=== PATIENT | male | born 1960 | race Caucasian/White ===

== ENCOUNTER → 2020-06-21 13:33 | Outpatient (CLI) | payer OTHER, MEDICAID, SELFPAY ==
--- NOTE | 2020-06-21 | DI.ECHO.S_ITS ---
[facility]---------+ [facility] +---------+ : : [address] : [address] : : [address] [place] : : : : [id number] : : : : Phone: [phone] +---------+ Echocardiogram Report + + :Name: MARIXA FRANKLIN Study Date: 06/21/2020 Height: 72 in : :[facility] ReadingLocation: Weight: 212 lb : : Gender: Male BSA: 2.2 m2 : :: 1960 Age: 59 yrs BP: 157/82 mmHg: :Reason For Study: SYSTOLIC CONGESTIVE HEART FAILURE : :Ordering Physician: LUIS, : :SONIA Performed By: Penny Avelar : :Referring: SONIA FULLER : + + Interpretation Summary 1) Normal left ventricular size with mildly reduced systolic function (EF 45- 50%). 2) Borderline enlarged right ventricle with normal function. 3) No significant valvular abnormalities. 4) The aortic root is mildly dilated at 4.1cm.The ascending aorta is mildly enlarged at 3.6cm. 5) No prior Echo available for comparison. Procedure: A two-dimensional transthoracic echocardiogram with color flow and Doppler was performed. The study quality was technically adequate. There is no prior echocardiogram noted for this patient. The patient was in sinus bradycardia with heart rates between 48-52 bpm during the exam. Left Ventricle: The left ventricle is normal in size and wall thickness. The ejection fraction is estimated to be 45-50%. There is mild global hypokinesis of the left ventricle. Right Ventricle: The right ventricle is borderline dilated. The right ventricular systolic function is normal. Atria: The left atrium is mildly dilated. The right atrium is normal in size. There is no Doppler evidence for an interatrial shunt. Mitral Valve: The mitral valve is normal in structure and function. There is mild mitral annular calcification. There is trace mitral regurgitation. Aortic Valve: The aortic valve is trileaflet. The aortic valve opens well. There is no aortic valve stenosis. No aortic regurgitation is present. Tricuspid Valve: The tricuspid valve is normal in structure and function. There is a trace or physiologic amount of tricuspid regurgitation. Pulmonary artery pressures cannot be estimated because of the lack of a measurable TR jet velocity but the IVC suggests a CVP of around 3 mmHg. Pulmonic Valve: The pulmonic valve leaflets are thin and pliable; valve motion is normal. There is no pulmonic valvular regurgitation. Great Vessels: The aortic root is mildly dilated. The ascending aorta is mildly enlarged. The IVC is of normal diameter and collapses greater than 50% with a sniff. This suggests a low right atrial pressure of 3 mm Hg. Pericardium/ Pleura There is no pericardial effusion. There is no pleural effusion. MMode/2D Measurements & Calculations LVIDd: 5.7 cm LVOT diam: 2.4 cm LVIDs: 3.8 cm Ao root diam: 4.1 cm FS: 33.4 % asc Aorta Diam: 3.6 cm EPSS: 1.5 cm Ao Arch Diam (Prox Trans): 2.8 cm IVSd: 0.96 cm LVPWd: 1.1 cm LV piedra. diameter/BSA (cm/m^2): 2.6 LV sys. diameter/BSA (cm/m^2): 1.7 LA A2 area: 26.9 cm2 RA long axis: 6.1 cm LA A4 area: 24.5 cm2 RA area: 22.7 cm2 LA length (vol): 6.1 cm RA vol: 71.7 ml LA vol: 91.7 ml RA : 32.8 ml/m2 LA vol index: 42.0 ml/m2 IVC diam: 1.3 cm RVD1 (basal): 3.8 cm TAPSE: 2.1 cm Doppler Measurements & Calculations Ao V2 max: 120.4 cm/sec LVOT Max Samuel: 79.0 cm/sec Ao V2 mean: 77.0 cm/sec LV V1 max P.5 mmHg Ao max P.8 mmHg LV V1 VTI: 16.7 cm Ao mean P.8 mmHg NEW(I,D): 3.1 cm2 Ao V2 VTI: 24.0 cm NEW(V,D): 3.0 cm2 sev ratio: 0.69 NEW indexed to BSA (cm^2/m^2): 1.4 MV E max samuel: 56.2 cm/sec PA V2 max: 76.8 cm/sec MV A max samuel: 64.5 cm/sec PA V2 mean: 51.1 cm/sec MV E/A: 0.87 PA mean P.2 mmHg Med Peak E' Samuel: 5.6 cm/sec PA pr(Accel): 17.3 mmHg E/E' med: 10.1 Lat Peak E' Samuel: 5.3 cm/sec E/E' lat: 10.6 E/e' average: 10.3 MV dec time: 0.22 sec SV(LVOT): 75.6 ml Reading Physician:08:12 AM
== END ==
PROVIDERS: Referring Provider Internal Medicine Cardiovascular Disease; Visit Provider Internal Medicine Cardiovascular Disease
DX: I77.810 Thoracic aortic ectasia (principal); I50.20 Unspecified systolic (congestive) heart failure
CPT/HCPCS: 93306

== ENCOUNTER → 2020-08-24 10:08 | Outpatient (CLI) | payer OTHER, MEDICAID, SELFPAY ==
[2020-08-24 11:24] LABS: COVID19 -Nasal RAPID Negative (Negative)
== END ==
PROVIDERS: Visit Provider Physician Assistant
DX: Z11.59 Encounter for screening for other viral diseases (principal)
CPT/HCPCS: 87635

== ENCOUNTER → 2020-08-26 10:55 | Outpatient (CLI) | payer OTHER, MEDICAID, SELFPAY ==
--- NOTE | 2020-08-26 | DI.NM.S_ITS ---
PROCEDURE: NM ZEESHAN PERF SPECT R&S PHARM Rest and pharmacological stress myocardial perfusion SPECT with gated imaging and ejection fraction RADIOPHARMACEUTICAL: 23.8 mCi Tc-99m tetrafosmin IV at rest and 27.4 mCi Tc-99m tetrafosmin IV at peak effect of pharmacological stress. [id number] was performed. INDICATIONS: Unspecified systolic (congestive) heart failure TECHNIQUE: Radiopharmaceutical was injected at peak stress test, and also at rest. SPECT images were obtained. SPECT myocardial perfusion images were displayed in short axis, horizontal long axis, and vertical long axis views. Gated images were reviewed using [employer] software. COMPARISON: None. CARDIAC STRESS: A pharmacologic stress test was performed under the supervision of an attending staff, using an infusion of lexiscan 0.4mg IV X1. Hemodynamic data: There is normal blood pressure and heart rate response to pharmacologic stress. Symptoms: The patient denied anginal chest pain. Aminophylline: none EKG: Resting ECG shows sinus rhythm with non-specific ST-T changes. No diagnostic changes of ischemia with lexiscan; no ectopy. FINDINGS: Raw data: There is good myocardial uptake of radiotracer. No significant motion artifacts. Left ventricle function: Gated images demonstrate normal left ventricular wall thickening. No segmental wall motion abnormalities. No transient ischemic dilation. Left ventricle resting end diastolic volume is 155 mL. Left ventricle stress ejection fraction is 54%; normal range is above 45%. Myocardial perfusion: There is a moderately intense defect in the inferior wall at rest that improves with stress and further improves with prone imaging, suggesting diaphragmatic attenuation but old prior non-transmural inferior infarct can't be excluded. No ischemia. IMPRESSION: Low risk, probably normal pharmaceutical nuclear stress test 1) There is a moderately intense defect in the inferior wall at rest that improves with stress and further improves with prone imaging, suggesting diaphragmatic attenuation but old prior non-transmural inferior infarct can't be excluded. No ischemia. 2) Enlarged left ventricle (resting EDV 155cc) with low normal systolic function (EF 54% post stress). No regional wall motion abnormalities. 3) No ECG evidence of ischemia. 4) No angina during the study. 5) No prior nuclear stress test available for comparison. Dictated by: Sarah Fuller MD on 08/29/2020 at 15:33 Approved by: Sarah Fuller MD on 08/29/2020 at 15:37
--- NOTE | 2020-08-26 11:54 | PM.TREADMILL ---
Cardiac Stress Test Report Referral & Results Date Patient Seen: 08/26/20 Time Patient Seen: 11:54 Requesting provider: Sarah Fuller Indication: Heart Failure Rest ECG: Paroxysmal atrial fibrillation Procedure Note: Patient was initially scheduled as a exercise stress test. Patient took metoprolol succ 200 mg this morning along with amiodarone 200 mg. Patient gait was unsteady on the treadmill. Test changed to Lexiscan. After Lexiscan injection, patient had minimal dypsnea, no chest pain. No significant ST changes after Lexiscan injection. Impression: Normal Lexiscan stress test Please note: Actual ECG tracings can be found in the PACS system.
== END ==
PROVIDERS: Referring Provider Internal Medicine Cardiovascular Disease; Visit Provider Internal Medicine Cardiovascular Disease
DX: I50.20 Unspecified systolic (congestive) heart failure (principal); I42.9 Cardiomyopathy, unspecified
CPT/HCPCS: 78452; 93016; 93017; 93018; A9502; J2785

== ENCOUNTER → 2021-04-24 13:07 | Outpatient (CLI) | payer MEDICARE, MEDICAID, SELFPAY ==
--- NOTE | 2021-04-24 13:08 | DI.ECHO.S_ITS ---
[facility]---------+ [facility] +---------+ : : [address] : [address] : [place] [address] : : : : [id number] : : : : Phone: [phone] : : [phone] +---------+ Echocardiogram Report + + :Name: MARIXA FRANKLIN Study Date: 04/24/2021 Height: 71.5 in: :[facility] ReadingLocation: Weight: 207 lb : : Gender: Male BSA: 2.2 m2 : :: 1960 Age: 60 yrs BP: 150/90 mmHg: :Reason For Study: Systolic (congestive) heart failure : :Ordering Physician: : :GLADIS Performed By: Edgar Rey : :Referring: SONIA FULLER : + + Interpretation Summary 1) Normal left ventricular size with mildly reduced systolic function (EF 45- 50%). 2) Borderline enlarged right ventricle with normal function. 3) No significant valvular abnormalities. 4) The aortic root is mildly dilated at 4.1cm. 5) Hypertension present during the study (BP 150/90mmHg). 6) Compared to the Echo done 06/21/2020, no significant change. Procedure: A two-dimensional transthoracic echocardiogram with color flow and Doppler was performed. Comparison is made with the echocardiogram of 06/21/2020. Overall fair image quality. The patient was in normal sinus rhythm during the exam. Left Ventricle: The left ventricle is normal in size and wall thickness. The ejection fraction is estimated to be 45-50%. There is a borderline dyssynchronous contraction pattern, consistent with a conduction abnormality. There is mild global hypokinesis of the left ventricle. Diastolic parameters suggest a relaxation abnormality of the left ventricle, consistent with probable normal filling pressures. Right Ventricle: Borderline right ventricular enlargement. The right ventricular systolic function is normal. Atria: Both atria are normal in size. There is no Doppler evidence for an interatrial shunt. Mitral Valve: The mitral valve is normal. There is no mitral regurgitation noted. Aortic Valve: The aortic valve is trileaflet. The aortic valve opens well. The aortic valve is slightly calcified. There is no aortic valve stenosis. No aortic regurgitation is present. Tricuspid Valve: The tricuspid valve is normal. There is trace tricuspid regurgitation. Pulmonary artery pressures cannot be estimated because of the lack of a measurable TR jet velocity but the IVC suggests a CVP of around 3 mmHg. Pulmonic Valve: The pulmonic valve is normal in structure and function. Great Vessels: Aortic root measures 4.1 cm which is unchanged from prior. Ascending aorta measures about 3.7 cm, previously measuring 3.6 cm. The aortic arch is normal in size. The IVC is of normal diameter and collapses greater than 50% with a sniff. This suggests a low right atrial pressure of 3 mm Hg. Pericardium/ Pleura There is no pericardial effusion. There is no pleural effusion. MMode/2D Measurements & Calculations LVIDd: 5.7 cm LVOT diam: 2.2 cm LVIDs: 3.5 cm Ao root diam: 4.1 cm FS: 38.6 % Ao Arch Diam (Prox Trans): 2.9 cm IVSd: 1.2 cm LVPWd: 1.0 cm LV piedra. diameter/BSA (cm/m^2): 2.6 LV sys. diameter/BSA (cm/m^2): 1.6 LA A2 area: 21.5 cm2 RA long axis: 4.9 cm LA A4 area: 20.6 cm2 LA length (vol): 5.5 cm LA vol: 68.9 ml LA vol index: 31.9 ml/m2 LVLs ap4: 6.4 cm LVLd ap2: 7.5 cm LVLs ap2: 6.2 cm TAPSE_phl: 2.9 cm Doppler Measurements & Calculations Ao V2 max: 99.0 cm/sec LVOT Max Samuel: 82.5 cm/sec Ao V2 mean: 72.6 cm/sec LV V1 max P.7 mmHg Ao max P.0 mmHg LV V1 VTI: 16.8 cm Ao mean P.0 mmHg NEW(I,D): 3.1 cm2 Ao V2 VTI: 20.4 cm NEW(V,D): 3.2 cm2 sev ratio: 0.82 NEW indexed to BSA (cm^2/m^2): 1.5 MV E max samuel: 52.5 cm/sec PA V2 max: 130.0 cm/sec MV A max samuel: 67.3 cm/sec PA V2 mean: 93.7 cm/sec MV E/A: 0.78 PA mean P.0 mmHg Med Peak E' Samuel: 7.2 cm/sec PA pr(Accel): 52.9 mmHg E/E' med: 7.3 Lat Peak E' Samuel: 8.3 cm/sec E/E' lat: 6.3 E/e' average: 6.8 MV dec time: 0.35 sec SV(LVOT): 63.9 ml AV VR_phl: 0.83 NEW(VTI)/BSA_phl: 1.4 MV P1/2t-pr_phl: 101.0 msec Reading Physician:03:49 PM
== END ==
PROVIDERS: Referring Provider Internal Medicine Cardiovascular Disease; Visit Provider Internal Medicine Cardiovascular Disease
DX: I77.810 Thoracic aortic ectasia (principal); I50.20 Unspecified systolic (congestive) heart failure
CPT/HCPCS: 93306

== ENCOUNTER → 2022-04-18 13:38 | Outpatient (CLI) | payer MEDICARE, MEDICAID, SELFPAY ==
--- NOTE | 2022-04-18 | DI.ECHO.S_ITS ---
[facility] +---------+ Hospital +---------+ : : [address] : [address] : : : : [id number] : : : : Phone: [phone] : : [phone] +---------+ Echocardiogram Report + + :Name: MARIXA FRANKLIN Study Date: 04/18/2022 Height: 72 in : :[facility] ReadingLocation: Weight: 204 lb : : Gender: Male BSA: 2.1 m2 : :: 1960 Age: 61 yrs BP: 145/90 mmHg: :Reason For Study: ASCENDING AORTA ENLARGEMENT : :Ordering Physician: LUIS, : :SONIA Performed By: Penny Avelar : :Referring: SONIA FULLER : + + Interpretation Summary 1) Normal left ventricular size with mildly reduced systolic function (EF 45- 50%). 2) The right ventricle is normal in size and function.. 3) No significant valvular abnormalities. 4) The aortic root is borderline dilated at 3.7cm. 5) Hypertension present during the study (BP 145/90mmHg). 6) Compared to the Echo done 04/24/2021, aortic root is less enlarged but this could be different acoustic windows on this study. Procedure: A two-dimensional transthoracic echocardiogram with color flow and Doppler was performed. The study quality was technically adequate. Comparison is made with the echocardiogram of 04/24/2021. The patient was in sinus rhythm with heart rates between 76-83 bpm during the exam. Left Ventricle: The left ventricle is normal in size. There is mild concentric left ventricular hypertrophy. The ejection fraction is estimated to be 45-50%. There is mild global hypokinesis of the left ventricle. Diastolic parameters suggest a relaxation abnormality of the left ventricle, consistent with probable normal filling pressures. Right Ventricle: The right ventricle is normal in size and function. Atria: The left atrial size is normal. Right atrial size is normal. There is no Doppler evidence for an interatrial shunt. Mitral Valve: The mitral valve is normal in structure and function. There is mild mitral annular calcification. There is no mitral regurgitation noted. Aortic Valve: The aortic valve is trileaflet. The aortic valve opens well. There is no aortic valve stenosis. No aortic regurgitation is present. Tricuspid Valve: The tricuspid valve is normal in structure and function. There is trace tricuspid regurgitation. Pulmonary artery pressures cannot be estimated because of the lack of a measurable TR jet velocity. Pulmonic Valve: The pulmonic valve is not well visualized. There is no pulmonic valvular regurgitation. Great Vessels: The aortic root is borderline dilated. The ascending aorta is at the upper limits of normal in size. The IVC is of normal diameter and collapses greater than 50% with a sniff. This suggests a low right atrial pressure of 3 mm Hg. Pericardium/ Pleura There is no pericardial effusion. There is no pleural effusion. MMode/2D Measurements & Calculations LVIDd: 5.0 cm LVOT diam: 2.6 cm LVIDs: 3.7 cm Ao root diam: 3.7 cm FS: 25.2 % asc Aorta Diam: 3.6 cm IVSd: 1.1 cm Ao Arch Diam (Prox Trans): 2.7 cm LVPWd: 1.0 cm LV piedra. diameter/BSA (cm/m^2): 2.3 LV sys. diameter/BSA (cm/m^2): 1.7 LA A2 area: 23.5 cm2 RA long axis: 5.9 cm LA A4 area: 18.5 cm2 RA area: 17.3 cm2 LA length (vol): 5.2 cm RA vol: 43.3 ml LA vol: 71.2 ml RA : 20.1 ml/m2 LA vol index: 33.2 ml/m2 IVC diam: 1.4 cm RVD1 (basal): 3.9 cm RVD2 (mid): 2.9 cm TAPSE: 2.1 cm Doppler Measurements & Calculations Ao V2 max: 112.6 cm/sec LVOT Max Samuel: 98.8 cm/sec Ao V2 mean: 87.2 cm/sec LV V1 max P.9 mmHg Ao max P.1 mmHg LV V1 VTI: 17.5 cm Ao mean P.2 mmHg NEW(I,D): 4.1 cm2 Ao V2 VTI: 22.2 cm NEW(V,D): 4.6 cm2 sev ratio: 0.79 NEW indexed to BSA (cm^2/m^2): 1.9 MV E max samuel: 53.0 cm/sec PA V2 max: 118.4 cm/sec MV A max samuel: 65.4 cm/sec PA V2 mean: 81.8 cm/sec MV E/A: 0.81 PA mean P.0 mmHg Med Peak E' Samuel: 10.6 cm/sec PA pr(Accel): 31.0 mmHg E/E' med: 5.0 Lat Peak E' Samuel: 10.3 cm/sec E/E' lat: 5.1 E/e' average: 5.1 MV dec time: 0.27 sec SV(OT): 92.3 ml Reading Physician:04:28 PM
== END ==
PROVIDERS: PCP Registered Nurse; Referring Provider Internal Medicine Cardiovascular Disease; Visit Provider Internal Medicine Cardiovascular Disease
DX: I34.81 Nonrheumatic mitral (valve) annulus calcification (principal); I77.89 Other specified disorders of arteries and arterioles
CPT/HCPCS: 93306

== ENCOUNTER 2022-04-26 12:34 | Outpatient (CLI) | payer MEDICARE, MEDICAID, SELFPAY ==
[2022-04-26] VITALS (7 sets, daily range): BP systolic 123–149; BP diastolic 67–88; PULSE 78–83; RESP 19–22; TEMP 36.8; O2SAT 96–100
--- NOTE | 2022-04-26 13:13 | DI.RAD.S_ITS ---
PROCEDURE: PAIN L/S FACET INJ/BLK 1ST NANDINI COMPARISON: None. INDICATIONS: SPINAL STENOSIS FINDINGS: Spot fluoroscopic image demonstrates L3, L4, and L5 branch block. IMPRESSION: Fluoroscopically guided branch block. Dictated by: Maryam Kim M.D. on 04/26/2022 at 16:43 Approved by: Maryam Kim M.D. on 04/26/2022 at 16:43
[2022-04-26] MEDS: IOPAMIDOL 15 ML VIAL 3 ML INJ (13:21)
[2022-04-26] MEDS: BUPIVACAINE 0.5% (PF) 10 ML VIAL 5 ML SUBCUT (13:22)
--- NOTE | 2022-04-26 13:48 | P.PCN_ITS ---
Date/Time/Diagnoses Date of procedure: 04/26/22 Time of procedure: 13:37 Procedure Notes Physician: Mark Thakkar Total Fluoroscopy time (seconds): 14 Total sedation minutes: 0 Procedure in detail & Post-procedure care: Bilateral L3,4,5 Lumbar Medial Branch Blocks Indications: Fito is referred by Dr. Beltran for treatment of lumbar spondylosis with low back pain. Preoperative diagnosis: Bilateral lumbar spondylosis Postoperative diagnosis: Same Pre-procedure History: Patient demonstrates today moderate to severe non- radicular back pain without neurologic deficit aggravated by hyperextension Yes Back pain greater than leg pain? Yes Patient today has tenderness over the suspected joint(s) Yes History of post-traumatic injury? No Hypertrophic arthropathy Yes Back pain associated with suspected motion segment instability, hypermobility or pseudoarthrosis No Pre-testing pain score (VAS): 7/10 Focused Examination: Ax3 Mood and affect are normal Vital Signs: VSS ASA: 2 Consent: Following review of allergies and potential side effects/complications, including, but not necessarily limited to, infection, allergic reaction, local tissue breakdown, stroke, temporary or permanent nerve injury, paralysis, and possible , the patient indicated that they understood and agreed to proceed.? An informed consent document was signed by the patient, witnessed by a nurse and placed in the patient's chart.? Additionally, other treatment options including medications and physical therapy were reviewed with the patient. All questions were answered. Site was then marked. Anesthesia: Local Position: Prone Monitoring: NIBP, Pulse oximetry, 3 lead EKG Needle used: 25G 3.5 inch spinal needle Contrast: Isovue 300M Injectate: 0.5% Bupivacaine 0.5 mL per injection site Procedure: The patient was brought into the procedure room and positioned into the prone position. Skin was prepped with a Chloraprep solution, allowed to air dry, and then draped in sterile fashion.? The bilateral L3,4,5 facet joints were visually identified with fluoroscopy. Lidocaine 1% was used to anesthetize the skin over each target destination with a 25ga needle. A 25 ga, 3.5 inch spinal needle was advanced to the location of the medial branch at the junction of the superior articular process and the transverse process using intermittent fluoroscopy in the AP view. Isovue 300M contrast 0.2ml was injected at each level outlining the medial borders for each level and the base of the SAP of the sacrum in the AP and lateral views. There was no evidence of vascular or intrathecal uptake. The above injectate was slowly injected at each target destination. At the end of the procedure the needles were withdrawn and Band- Aids were applied for a dressing. Post Procedure: Patient was taken to the recovery and monitored. The patient was provided a Pain Log to continue to record the patient's response to the target- specific procedure prior to the patient's follow-up visit with the referring physician. Patient was stable upon discharge. Detailed post procedure instructions were provided. Patient was asked to call in the event of worsening pain, fever, weakness, numbness or bladder or bowel incontinence. Postoperatively, today patient demonstrates the following changes with hyperextension and with tenderness over the suspected joint(s). Provacative testing using the Aj's facet loading test Right side Left side Directly before the block ?VAS (0-10) = 7/10 VAS (0-10) = 7/10 5 minutes after the block VAS (0-10) = 2/10 VAS (0-10) = 2/10 Percentage relief obtained with this diagnostic block D 71% 71% Any improved physical functioning directly after the blocks? walking, ROM Based on the medial branches blocked today, if the patient meets insurance criteria for radiofrequency, the treatment should result in the denervation of the L4-5 and L5-S1 facet joint nerves. We would expect to denervate a total of 4 facets during the radiofrequency ablation.
== END 2022-04-26 13:46 | disposition home or self-care (01) ==
LOC: RAD 12:36
PROVIDERS: PCP Registered Nurse; Referring Provider Anesthesiology; Visit Provider Anesthesiology
DX: M47.816 Spondylosis without myelopathy or radiculopathy, lumbar region (principal)
CPT/HCPCS: 64493; 64494

== ENCOUNTER 2022-06-21 13:36 | Outpatient (CLI) | payer MEDICARE, MEDICAID, SELFPAY ==
--- NOTE | 2022-06-21 13:39 | DI.RAD.S_ITS ---
PROCEDURE: PAIN L/S FACET INJ/BLK 1ST NANDINI COMPARISON: [facility], , PAIN L/S FACET INJ/BLK 1ST NANDINI, 04/26/2022, 14:21. INDICATIONS: SPONDYLOSIS FINDINGS: Needle placement at the lower lumbar and lumbosacral levels. IMPRESSION: Needle placement as above. Dictated by: Brooke Yung M.D. on 06/21/2022 at 16:47 Approved by: Brooke Yung M.D. on 06/21/2022 at 16:48
[2022-06-21 14:00] VITALS: BP 137/88; PULSE 70; RESP 18; TEMP 36.6; O2SAT 99
[2022-06-21 14:53] VITALS: BP 129/60; PULSE 71; RESP 17; O2SAT 98
[2022-06-21 14:58] VITALS: BP 124/60; PULSE 76; RESP 18; O2SAT 97
[2022-06-21] MEDS: IOPAMIDOL 15 ML VIAL 3 ML INJ (14:58)
[2022-06-21] MEDS: LIDOCAINE 2% INJ MDV 20ML 20 ML INJ (15:01)
[2022-06-21 15:03] VITALS: BP 127/61; PULSE 76; RESP 18; O2SAT 97
[2022-06-21 15:08] VITALS: BP 123/61; PULSE 77; RESP 18; O2SAT 97
[2022-06-21 15:15] VITALS: BP 137/74; PULSE 69; RESP 16; O2SAT 99
--- NOTE | 2022-06-21 17:20 | P.PCN_ITS ---
Date/Time/Diagnoses Date of procedure: 06/21/22 Time of procedure: 14:30 Procedure Notes Physician: Mark Thakkar Total Fluoroscopy time (seconds): 15 Total sedation minutes: 0 Procedure in detail & Post-procedure care: Bilateral L3, 4, 5 Lumbar Medial Branch Blocks Indications: Fito is referred by Dr. Beltran for treatment of lumbar spondylosis with low back pain. Preoperative diagnosis: Bilateral lumbar spondylosis Postoperative diagnosis: Same Pre-procedure History: Patient demonstrates today moderate to severe non- radicular back pain without neurologic deficit aggravated by hyperextension yes Back pain greater than leg pain? yes Patient today has tenderness over the suspected joint(s) yes History of post-traumatic injury? yes Hypertrophic arthropathy yes Back pain associated with suspected motion segment instability, hypermobility or pseudoarthrosis no Pre-testing pain score (VAS): 8/10 Focused Examination: Ax3 Mood and affect are normal Vital Signs: VSS ASA: 2 Consent: Following review of allergies and potential side effects/complications, including, but not necessarily limited to, infection, allergic reaction, local tissue breakdown, stroke, temporary or permanent nerve injury, paralysis, and possible , the patient indicated that they understood and agreed to proceed.? An informed consent document was signed by the patient, witnessed by a nurse and placed in the patient's chart.? Additionally, other treatment options including medications and physical therapy were reviewed with the patient. All questions were answered. Site was then marked. Anesthesia: Local Position: Prone Monitoring: NIBP, Pulse oximetry, 3 lead EKG Needle used: 22G 3.5 inch spinal needle Contrast: Isovue 300M Injectate: 2% lidocaine Procedure: The patient was brought into the procedure room and positioned into the prone position. Skin was prepped with a Chloraprep solution, allowed to air dry, and then draped in sterile fashion.? The right L3, 4, 5 facet joints were visually identified with fluoroscopy. Lidocaine 1% was used to anesthetize the skin over each target destination with a 25ga needle. A 22ga, 3.5 inch spinal needle was advanced to the location of the medial branch at the junction of the superior articular process and the transverse process using intermittent fluoroscopy in the AP view. Isovue 300M contrast 0.2ml was injected at each level outlining the medial borders for each level and the base of the SAP of the sacrum in the AP and lateral views. There was no evidence of vascular or intrathecal uptake. The above injectate was slowly injected at each target nicole tination. The above procedure was then repeated for the left L3, 4, 5. Facet joints were visually identified with fluoroscopy. Lidocaine 1% was used to anesthetize the skin over each target destination with a 25ga needle. A 22ga, 3.5 inch spinal needle was advanced to the location of the medial branch at the junction of the superior articular process and the transverse process using intermittent fluoroscopy in the AP view. Isovue 300M contrast 0.2ml was injected at each level outlining the medial borders for each level and the base of the SAP of the sacrum in the AP and lateral views. There was no evidence of vascular or intrathecal uptake. The above injectate was slowly injected at each target destination. At the end of the procedure the needles were withdrawn and Band- Aids were applied for a dressing. Post Procedure: Patient was taken to the recovery and monitored. The patient was provided a Pain Log to continue to record the patient's response to the target- specific procedure prior to the patient's follow-up visit with the referring physician. Patient was stable upon discharge. Detailed post procedure instructions were provided. Patient was asked to call in the event of worsening pain, fever, weakness, numbness or bladder or bowel incontinence. Postoperatively, today patient demonstrates the following changes with hyperextension and with tenderness over the suspected joint(s). Provacative testing using the Aj's facet loading test Right side Left side Directly before the block ?VAS (0-10) = 8/10 VAS (0-10) = 8/10 5 minutes after the block VAS (0-10) = 4/10 VAS (0-10) = 4/10 Percentage relief obtained with this diagnostic block 50 % 50 % Any improved physical functioning directly after the blocks? Improved mobility Based on the medial branches blocked today, if the patient meets insurance criteria for radiofrequency, the treatment should result in the denervation of the bilateral L4-5 and L5-S1 facet joint nerves. We would expect to denervate a total of 4 facets during the radiofrequency ablation.
== END 2022-06-21 15:17 | disposition home or self-care (01) ==
PROVIDERS: PCP Registered Nurse; Referring Provider Anesthesiology; Visit Provider Anesthesiology
DX: M47.816 Spondylosis without myelopathy or radiculopathy, lumbar region (principal)
CPT/HCPCS: 64493; 64494

== ENCOUNTER 2022-07-12 12:59 | Outpatient (CLI) | payer MEDICARE, MEDICAID, SELFPAY ==
[2022-07-12] VITALS (10 sets, daily range): BP systolic 117–154; BP diastolic 65–80; PULSE 64–74; RESP 18–22; TEMP 36.8; O2SAT 95–99
--- NOTE | 2022-07-12 13:03 | DI.RAD.S_ITS ---
PROCEDURE: PAIN L/S MED/LAT N RFA BILAT INDICATIONS: SPONDYLOSIS COMPARISON: None. FINDINGS: Fluoroscopic spot filming was performed to verify placement of spinal needles at the L3, L4 and L5 level(s), as labeled on the films. Appropriate location(s) of the needle tip(s) was confirmed by injection of iodinated contrast. IMPRESSION: Fluoro guidance was provided intraoperatively for bilateral L3, L4 and L5 medial branch rhizotomy to be performed by the ordering physician. Dictated by: Leonardo Michel M.D. on 07/12/2022 at 16:16 Approved by: Leonardo Michel M.D. on 07/12/2022 at 16:16
[2022-07-12] MEDS: MIDAZOLAM 2 MG/2 ML VIAL IV (13:50)
[2022-07-12] MEDS: DEXAMETHASONE 10 MG/ML VIAL INJ (13:56)
[2022-07-12] MEDS: LIDOCAINE 2% INJ SDV 5ML 5 ML TOP (13:56)
[2022-07-12] MEDS: BUPIVACAINE 0.5% (PF) 30 ML VIAL 5 ML INJ (13:59)
--- NOTE | 2022-07-12 17:15 | P.PCN_ITS ---
Date/Time/Diagnoses Date of procedure: 07/12/22 Time of procedure: 13:30 Procedure Notes Physician: Mark Thakkar Total Fluoroscopy time (seconds): 25 Total sedation minutes: 33 Procedure in detail & Post-procedure care: Bilateral L3, 4, 5 Lumbar Medial Branch Radio Frequency Ablation Indications: Fito presents for treatment of lumbar spondylosis with low back pain. Preoperative diagnosis: Bilateral L3, 4, 5 lumbar spondylosis Postoperative diagnosis: Same Pre-procedure History: Patient demonstrates today moderate to severe non-radicular low back pain without neurologic deficit aggravated by hyperextension yes Back pain greater than leg pain? yes Patient today has tenderness over the suspected joint(s) yes History of post-traumatic injury? no Hypertrophic arthropathy yes Back pain associated with suspected motion segment instability, hypermobility or pseudoarthrosis no Focused Examination: Ax3 Mood and affect are normal Vital Signs: VSS ASA: 2 Consent: Following review of allergies and potential side effects/complications, including, but not necessarily limited to, infection, allergic reaction, local tissue breakdown, stroke, temporary or permanent nerve injury, paralysis, and possible , the patient indicated that they understood and agreed to proceed.? An informed consent document was signed by the patient, witnessed by a nurse and placed in the patient's chart.? Additionally, other treatment options including medications and physical therapy were reviewed with the patient. All questions were answered. Site was then marked. Position: Prone Monitoring: NIBP, Pulse oximetry, 3 lead EKG Needle used: 18 guage, 100 mm, 10 mm active tip Anesthesia: Local with IV sedation. After review of previous anesthetic history and IV conscious sedation, the patient was deemed safe to proceed with today's procedure with IV conscious sedation. IV sedation was accomplished with midazolam 2 mg administered by the RN after order by Dr. Thakkar. Sedation was titrated to patient comfort during the course of the procedure. Patient remained responsive to all verbal commands. Procedure: The patient was brought into the procedure room and positioned into the prone position. Skin was prepped with a Chloraprep solution, allowed to air dry, and then draped in sterile fashion.? The right L4-5 and L5-S1 facet joints were visually identified with fluoroscopy. Lidocaine 1% was used to anesthetize the skin over each target destination with a 25ga needle. An 18 ga, 100 mm RFA needle with a 10 mm active tip was advanced to the location of the medial branch at the junction of the superior articular process and the transverse process at right L3, 4, 5 using intermittent fluoroscopy in the oblique view with caudal tilt. AP and lateral radiographs were taken to confirm proper needle placement. No paresthesias were noted. The stylet was removed and the radiofrequency probe was inserted through the cannula. Each level was individually tested. The impedance was between 300 and 800 ohms at all levels.? Motor stimulation up to 2V elicited multifidus twitching in the lumbar spine. There was no motor stimulation in the lower extremities. After negative aspiration, 1ml of 2% lidocaine was injected at each of the levels and radiofrequency denervation carried out using 80 degrees Celsius for 90 seconds. The needles were then rotated 90 degrees and a second ablation was performed at 80 degrees Celsius for 90 seconds. After ablation, a mixture of 10 mg dexamethasone with 0.25% bupivacaine 5 mL was injected in equal amounts among the sites (1 mL per site). Next, the left L4-5 and L5-S1 facet joints were visually identified with fluoroscopy. Lidocaine 1% was used to anesthetize the skin over each target destination with a 25ga needle. An 18 ga, 100 mm RFA needle with a 10 mm active tip was advanced to the location of the medial branch at the junction of the sup erior articular process and the transverse process at left L3, 4, 5 using intermittent fluoroscopy in the oblique view with caudal tilt. AP and lateral radiographs were taken to confirm proper needle placement. No paresthesias were noted. The stylet was removed and the radiofrequency probe was inserted through the cannula. Each level was individually tested. The impedance was between 300 and 800 ohms at all levels.? Motor stimulation up to 2V elicited multifidus twitching in the lumbar spine. There was no motor stimulation in the lower extremities. After negative aspiration, 1ml of 2% lidocaine was injected at each of the levels and radiofrequency denervation carried out using 80 degrees Celsius for 90 seconds. The needles were then rotated 90 degrees and a second ablation was performed at 80 degrees Celsius for 90 seconds. After ablation, a mixture of 10 mg dexamethasone with 0.25% bupivacaine 5 mL was injected in equal amounts among the sites (1 mL per site). At the end of the procedure the needles were withdrawn and Band-Aids were applied for a dressing. This procedure is expected to denervate the bilateral L4-5 and L5-S1 facet joints. Post Procedure: Patient was taken to the recovery and monitored. The patient was provided a Pain Log to continue to record the patient's response to the target- specific procedure prior to the patient's follow-up visit with the referring physician. Patient was stable upon discharge. Detailed post procedure instructions were provided. Patient was asked to call in the event of worsening pain, fever, weakness, numbness or bladder or bowel incontinence. Complications: None
== END 2022-07-12 14:38 | disposition home or self-care (01) ==
PROVIDERS: PCP Registered Nurse; Referring Provider Anesthesiology; Visit Provider Anesthesiology
DX: M47.816 Spondylosis without myelopathy or radiculopathy, lumbar region (principal)
CPT/HCPCS: 64635; 64636; 99152; 99153; J1100; J2250

== ENCOUNTER → 2023-05-20 13:38 | Outpatient (CLI) | payer MEDICARE, MEDICAID, SELFPAY ==
--- NOTE | 2023-05-20 13:39 | DI.ECHO.S_ITS ---
[facility]---------+ [facility] +---------+ : : [address] [place] : : : : [id number] : : : : Phone: [phone]---------+ Echocardiogram Report + + :Name: MARIXA FRANKLIN Study Date: 05/20/2023 Height: 72 in : :[facility] ReadingLocation: Weight: 185 lb : : Gender: Male BSA: 2.1 m2 : :: 1960 Age: 62 yrs BP: 142/88 mmHg: :Reason For Study: ASCENDING AORTA ENLARGEMENT : :Ordering Physician: LUIS, : :SONIA Performed By: Gopi Dickens : :Referring: SONIA FULLER : + + Interpretation Summary 1) Normal left ventricular size with mildly to moderately reduced systolic function (EF 40-45%). 2) The right ventricle is normal in size and function.. 3) No significant valvular abnormalities. 4) The aortic root is borderline dilated at 4.0cm. 5) Hypertension present during the study (BP 142/88mmHg). 6) Compared to the Echo done 04/18/2022, LVEF has decreased slightly from 45-50% to 40-45% on this study. Procedure: A two-dimensional transthoracic echocardiogram with color flow and Doppler was performed. The study quality was technically adequate. Comparison is made with the echocardiogram of 04/18/22. The patient was in normal sinus rhythm during the exam. The heart rate ranged between 62-70 bpm during the study. Left Ventricle: The left ventricle is normal in size and wall thickness. The ejection fraction is estimated to be 40-45%. There is mild to moderate global hypokinesis of the left ventricle. Diastolic parameters suggest a relaxation abnormality of the left ventricle, consistent with probable normal filling pressures. Right Ventricle: The right ventricle is normal size. The right ventricular systolic function is normal. Atria: The left atrium is moderately dilated. The right atrium is normal in size. Mitral Valve: The mitral valve is normal in structure and function. There is no mitral valve stenosis. There is trace mitral regurgitation. Aortic Valve: The aortic valve is trileaflet. There is no aortic valve stenosis. No aortic regurgitation is present. Tricuspid Valve: The tricuspid valve is normal in structure and function. There is no tricuspid stenosis. No tricuspid regurgitation. Pulmonic Valve: The pulmonic valve is not well visualized. There is no pulmonic valvular stenosis. There is no pulmonic valvular regurgitation. Great Vessels: The aortic root is mildly dilated. The ascending aorta is at the upper limits of normal in size. The inferior vena cava appeared normal. Pericardium/ Pleura There is no pericardial effusion. There is no pleural effusion. MMode/2D Measurements & Calculations LVIDd: 5.0 cm LVOT diam: 2.3 cm LVIDs: 3.8 cm Ao root diam: 4.0 cm FS: 23.5 % asc Aorta Diam: 3.6 cm IVSd: 1.2 cm Ao Arch Diam (Prox Trans): 2.8 cm LVPWd: 1.1 cm LV piedra. diameter/BSA (cm/m^2): 2.4 LV sys. diameter/BSA (cm/m^2): 1.8 LA A2 area: 20.9 cm2 RA long axis: 4.5 cm LA A4 area: 23.5 cm2 RA area: 17.3 cm2 LA length (vol): 6.0 cm RA vol: 56.4 ml LA vol: 69.9 ml RA : 27.4 ml/m2 LA vol index: 33.9 ml/m2 IVC diam: 1.3 cm RVD1 (basal): 4.3 cm RVD2 (mid): 3.2 cm TAPSE: 2.5 cm Doppler Measurements & Calculations Ao V2 max: 89.6 cm/sec LVOT Max Samuel: 83.8 cm/sec Ao V2 mean: 68.7 cm/sec LV V1 max P.8 mmHg Ao max P.2 mmHg LV V1 VTI: 20.5 cm Ao mean P.0 mmHg NEW(I,D): 3.9 cm2 Ao V2 VTI: 21.4 cm NEW(V,D): 3.8 cm2 sev ratio: 0.96 NEW indexed to BSA (cm^2/m^2): 1.9 MV E max samuel: 53.9 cm/sec PA V2 max: 118.9 cm/sec MV A max samuel: 71.1 cm/sec PA V2 mean: 79.6 cm/sec MV E/A: 0.76 PA mean P.9 mmHg Med Peak E' Samuel: 6.3 cm/sec PA pr(Accel): 20.8 mmHg E/E' med: 8.6 Lat Peak E' Samuel: 8.3 cm/sec E/E' lat: 6.5 E/e' average: 7.5 MV dec time: 0.28 sec SV(LVOT): 84.4 ml Reading Physician:05:18 PM
== END ==
PROVIDERS: PCP Registered Nurse; Referring Provider Internal Medicine Cardiovascular Disease; Visit Provider Internal Medicine Cardiovascular Disease
DX: I77.810 Thoracic aortic ectasia (principal); I77.89 Other specified disorders of arteries and arterioles
CPT/HCPCS: 93306

== ENCOUNTER → 2024-07-02 | Outpatient (CLI) | payer MEDICARE, SELFPAY ==
--- NOTE | 2024-07-02 12:56 | DI.ECHO.S_ITS ---
[facility] +---------+ [facility] : : [address] : [place] : : [id number] : : Phone: [phone] Echocardiogram Report + + :Name: MARIXA FRANKLIN Study Date: 07/02/2024 Height: 72 in : :Hospital ReadingLocation: Weight: 200 lb : : Gender: Male BSA: 2.1 m2 : :: 1960 Age: 63 yrs BP: 132/78 mmHg: :Reason For Study: HEART FAILURE REDUCED EJECTION FRACTION : :Ordering Physician: LUIS, : :SONIA Performed By: Penny Avelar : :Referring: SONIA FULLER : + + Interpretation Summary 1) Normal left ventricular size with mildly reduced systolic function (EF 45- 50%). 2) The right ventricle is normal in size and has low normal function.. 3) No significant valvular abnormalities. 4) The aortic root is mildly dilated at 4.1cm. 6) Compared to the Echo done 05/20/2023, LVEF has improved slightly from 40-45% to 45-50% (similar to echo 04/18/2022) and aortic root enlargement has increased slightly from 4.0cm to 4.1cm (similar to echo 04/24/2021). Procedure: A two-dimensional transthoracic echocardiogram with color flow and Doppler was performed. The study quality was technically adequate. Comparison is made with the echocardiogram of 05/20/2023. The patient was in sinus rhythm with heart rates between 60-63 bpm during the exam. Left Ventricle: The left ventricle is normal in size and wall thickness. The ejection fraction is estimated to be 45-50%. There is mild global hypokinesis of the left ventricle. Diastolic parameters suggest a relaxation abnormality of the left ventricle, consistent with probable normal filling pressures. Right Ventricle: The right ventricle is normal size. Right ventricular systolic function is at the lower limits of normal. Atria: The left atrium is moderately dilated. Right atrial size is normal. There is no Doppler evidence for an interatrial shunt. Mitral Valve: The mitral valve leaflets appear to open well. There is trace mitral regurgitation. Aortic Valve: The aortic valve is trileaflet. The aortic valve opens well. There is no aortic valve stenosis. No aortic regurgitation is present. Tricuspid Valve: The tricuspid valve leaflets are thin and pliable. No tricuspid regurgitation. Pulmonary artery pressures cannot be estimated because of the lack of a measurable TR jet velocity. Pulmonic Valve: The pulmonic valve leaflets are thin and pliable; valve motion is normal. There is no pulmonic valvular regurgitation. Great Vessels: The aortic root is mildly dilated. The dimensions of the ascending aorta are normal. The IVC is of normal diameter and collapses greater than 50% with a sniff. This suggests a low right atrial pressure of 3 mm Hg. Pericardium/ Pleura There is no pericardial effusion. There is no pleural effusion. MMode/2D Measurements & Calculations LVIDd: 5.3 cm LVOT diam: 2.3 cm LVIDs: 4.0 cm Ao root diam: 4.1 cm FS: 24.0 % asc Aorta Diam: 3.4 cm EPSS: 0.86 cm IVSd: 0.76 cm LVPWd: 0.92 cm LV piedra. diameter/BSA (cm/m^2): 2.5 LV sys. diameter/BSA (cm/m^2): 1.9 LA A2 area: 27.5 cm2 RA long axis: 5.9 cm LA A4 area: 22.2 cm2 RA area: 21.9 cm2 LA length (vol): 5.6 cm RA vol: 69.5 ml LA vol: 91.9 ml RA : 32.6 ml/m2 LA vol index: 43.2 ml/m2 IVC diam: 1.7 cm RVD1 (basal): 4.0 cm RVD2 (mid): 3.3 cm TAPSE: 1.7 cm Doppler Measurements & Calculations Ao V2 max: 113.5 cm/sec LVOT Max Samuel: 89.8 cm/sec Ao V2 mean: 76.4 cm/sec LV V1 max P.2 mmHg Ao max P.2 mmHg LV V1 VTI: 19.2 cm Ao mean P.6 mmHg NEW(I,D): 3.1 cm2 Ao V2 VTI: 24.6 cm NEW(V,D): 3.2 cm2 sev ratio: 0.78 NEW indexed to BSA (cm^2/m^2): 1.5 MV E max samuel: 72.1 cm/sec PA V2 max: 110.6 cm/sec MV A max samuel: 56.9 cm/sec PA V2 mean: 77.1 cm/sec MV E/A: 1.3 PA mean P.7 mmHg Med Peak E' Samuel: 8.4 cm/sec PA pr(Accel): 13.5 mmHg E/E' med: 8.5 Lat Peak E' Samuel: 11.2 cm/sec E/E' lat: 6.4 E/e' average: 7.5 MV dec time: 0.19 sec SV(LVOT): 77.0 ml Reading Physician:12:22 PM
== END ==
PROVIDERS: PCP Registered Nurse; Referring Provider Internal Medicine Cardiovascular Disease; Visit Provider Internal Medicine Cardiovascular Disease
DX: I50.20 Unspecified systolic (congestive) heart failure (principal); I77.810 Thoracic aortic ectasia
CPT/HCPCS: 93306